=== PATIENT | female | born 1955 | race Caucasian/White ===

== ENCOUNTER 2017-12-20 06:32 | Emergency (ER) | payer MEDICAID, OTHER ==
[~2017-12-20] VITALS: Ht 167.6 cm; Wt 98.0 kg
[~2017-12-20 06:32] MED LIST: LAMO25TA4 PO; LOSA25TA96 PO; PIOG15TA8 PO
[2017-12-20 06:34] VITALS: BP 160/84
[2017-12-20] MEDS ORDERED: CYCL-1 PO (06:50)
[2017-12-20] MEDS ORDERED: ketorolac trometh inj. 60 MG/2 ML VIAL IM ONE (06:50)
[2017-12-20] MEDS ORDERED: PIOG15TA8 PO (07:39)
== END 2017-12-20 07:52 | disposition home or self-care (01) ==
LOC: ER 06:33
DX: M54.2 Cervicalgia (principal); E11.42 Type 2 diabetes mellitus with diabetic polyneuropathy; E78.00 Pure hypercholesterolemia, unspecified; I10 Essential (primary) hypertension; G89.29 Other chronic pain; Z86.73 Personal history of transient ischemic attack (TIA), and cerebral infarction without residual deficits; Z98.890 Other specified postprocedural states; Z90.710 Acquired absence of both cervix and uterus; Z99.3 Dependence on wheelchair; Z59.0 Homelessness; Z88.0 Allergy status to penicillin; Z88.5 Allergy status to narcotic agent; Z88.8 Allergy status to other drugs, medicaments and biological substances; Z79.899 Other long term (current) drug therapy
CPT/HCPCS: 96372; 99283; J1885

== ENCOUNTER 2018-01-11 13:19 | Emergency (ER) | payer MEDICAID ==
[~2018-01-11] VITALS: Ht 167.6 cm; Wt 90.9 kg
[~2018-01-11 13:19] MED LIST changes: +CYCL-1 PO
[2018-01-11] MEDS ORDERED: DOCU100C33 (13:33)
[2018-01-11] MEDS ORDERED: AMLO5TAB21 (13:36)
[2018-01-11] MEDS ORDERED: LABE300T PO (13:52)
[2018-01-11] MEDS ORDERED: LOSA25TA96 PO (13:52)
[2018-01-11] MEDS ORDERED: PANT-47 PO (13:52)
[2018-01-11] MEDS ORDERED: LORA1TAB PO (13:56)
[2018-01-11 14:00] LABS: BASOPHILS % (AUTO) 0.7 % (0-1); EOSINOPHILS # (AUTO) 0.1 X10'3 (0-0.9); EOSINOPHILS % (AUTO) 1.9 % (0-6); HEMATOCRIT 34.3 % (35.0-45.0); HEMOGLOBIN 11.9 g/dl (12.0-16.0); LYMPHOCYTES # (AUTO) 1.9 X10'3 (1.1-4.8); MEAN CORPUSCULAR HEMOGLOBIN 30.3 PG (27.0-31.0); MEAN CORPUSCULAR HGB CONC 34.5 % (33.0-36.5); MEAN CORPUSCULAR VOLUME 87.7 FL (78-98); MONOCYTES # (AUTO) 0.2 X10'3 (0-0.9); MONOCYTES % (AUTO) 4.2 % (2-12); NEUTROPHILS # (AUTO) 2.9 X10'3 (1.8-7.7); NEUTROPHILS % (AUTO) 56.2 % (42-75); PLATELET COUNT 204 X10'3 (140-440); RED BLOOD COUNT 3.91 X10'6 (4.20-5.60); WHITE BLOOD COUNT 5.2 X10'3 (4.5-11.0)
[2018-01-11 14:19] LABS: ALANINE AMINOTRANSFERASE 30 U/L (12-78); ALBUMIN 3.4 G/DL (3.4-5.0); ALKALINE PHOSPHATASE 74 IU/L (46-116); ANION GAP 6 (8-16); ASPARTATE AMINO TRANSFERASE 19 U/L (10-37); BILIRUBIN,TOTAL 0.6 MG/DL (0.1-1.0); BLOOD UREA NITROGEN 9 MG/DL (7-18); BUN/CREATININE RATIO 14.1 (6.6-38.0); CHLORIDE 104 MMOL/L (99-107); CREATININE 0.64 MG/DL (0.40-0.90); ETHANOL < 0.010 GM/DL (0.0-0.010); GLUCOSE 138 MG/DL (70-104); POTASSIUM 3.6 MMOL/L (3.5-5.1); SODIUM 141 MMOL/L (135-145); TOTAL CARBON DIOXIDE 31.4 MMOL/L (24-32); TOTAL PROTEIN 6.7 G/DL (6.4-8.2); eGFR > 90 ML/MIN
[2018-01-11 14:23] LABS: URINE HCG NEGATIVE (NEG)
[2018-01-11 14:24] LABS: CLARITY,URINE CLEAR (Clear); COLOR,URINE YELLOW (Yellow); GLUCOSE, URINE NEGATIVE (Neg); KETONES,URINE NEGATIVE (Neg); LEUKOCYTE ESTERASE ,URINE TRACE (Neg); NITRITES, URINE NEGATIVE (Neg); OCCULT BLOOD,URINE TRACE-LYSED (Neg); PH,URINE 7.5 (4.8-8.0); PROTEIN,URINE NEGATIVE (Neg); UROBILINOGEN,URINE 0.2 E.U/dL (0.2-1.0)
[2018-01-11 14:25] LABS: UA COLLECTION TYPE CLN CATCH MIDSTREAM
[2018-01-11 14:30] LABS: BACTERIA,URINE FEW /HPF (Neg); MUCUS STRANDS NONE SEEN /LPF (Neg); RBC,URINE NONE SEEN /HPF (0-2); SQUAMOUS EPITHELIAL CELL,UR FEW /LPF (FEW); WBC,URINE 0-4 /HPF (0-4)
[2018-01-11 14:34] LABS: URINE AMPHETAMINE SCREEN NEGATIVE (Neg); URINE BARBITUATE SCREEN NEGATIVE (Neg); URINE BENZODIAZEPINES SCREEN NEGATIVE (Neg); URINE CANNABINOID SCREEN NEGATIVE (Neg); URINE COCAINE SCREEN NEGATIVE (Neg); URINE METHADONE SCREEN NEGATIVE (Neg); URINE OPIATE SCREEN NEGATIVE (Neg); URINE PHENCYCLIDINE SCREEN NEGATIVE (Neg)
[2018-01-11 17:02] VITALS: BP 146/68
== END 2018-01-11 17:04 | disposition home or self-care (01) ==
LOC: ER 13:20
DX: R45.851 Suicidal ideations (principal); D64.9 Anemia, unspecified; G89.29 Other chronic pain; I10 Essential (primary) hypertension; E78.00 Pure hypercholesterolemia, unspecified; E11.42 Type 2 diabetes mellitus with diabetic polyneuropathy; F41.9 Anxiety disorder, unspecified; Z86.73 Personal history of transient ischemic attack (TIA), and cerebral infarction without residual deficits; F32.9 Major depressive disorder, single episode, unspecified; Z90.710 Acquired absence of both cervix and uterus; Z98.890 Other specified postprocedural states; Z88.0 Allergy status to penicillin; Z88.1 Allergy status to other antibiotic agents; Z88.5 Allergy status to narcotic agent; Z88.8 Allergy status to other drugs, medicaments and biological substances; Z88.6 Allergy status to analgesic agent; Z79.899 Other long term (current) drug therapy; Z59.0 Homelessness; Z56.0 Unemployment, unspecified
CPT/HCPCS: 36415; 80053; 80305; 80320; 81001; 81025; 84443; 85025; 87088; 99284